=== PATIENT | male | born 1990 | race Caucasian/White ===

== ENCOUNTER 2018-10-15 18:22 | Emergency (ER) | payer OTHER ==
[~2018-10-15] VITALS: Ht 170.2 cm; Wt 54.4 kg
[~2018-10-15 18:22] MED LIST: Ultram50 MG PO
[2018-10-15] MEDS ORDERED: KETO10 PO (18:48)
== END 2018-10-15 18:50 | disposition home or self-care (01) ==
LOC: ER 18:22
DX: S20.211A Contusion of right front wall of thorax, initial encounter (principal); W19.XXXA Unspecified fall, initial encounter; Z87.891 Personal history of nicotine dependence
CPT/HCPCS: 99283